=== PATIENT | male | born 2000 | race Two or more races ===

== ENCOUNTER 2024-08-07 16:27 | Emergency (ER) | payer MEDICAID, SELFPAY ==
[2024-08-07 16:28] VITALS: BMI 44.1
--- NOTE | 2024-08-07 17:29 | XR_ITS ---
Examination: CT abdomen and pelvis without contrast. Coronal 3-D reconstructions. Sagittal 2-D reconstructions. Date and time of exam:August 07, 2024 1736 hrs. Indications: Onset left-sided flank pain today CTDI: vol (mGy): 15.3 DLP: (mGycm): 1059 Technique: Axial images of the abdomen have been obtained, 3 mm slice thickness Intravenous contrast material has not been administered. Low dose protocols were performed. One or more of the following dose reduction techniques were used; automated exposure control, adjustment of the mA and/or KV according to patient size, use of iterative reconstruction technique. Findings: No focal liver or splenic lesions Contracted gallbladder No pancreatic or adrenal mass. No renal or ureteral calculi, no hydronephrosis Aorta normal size No bowel obstruction 8mm fat-containing umbilical hernia Normal appendix Mild inflammatory change about the descending colon, axial image 136 without definite diverticulitis No prostatomegaly Contracted urinary bladder Impression: No renal or ureteral calculi, no hydronephrosis Mild inflammatory change about the descending colon, axial image 136, consider nonspecific colitis, early epiploic appendagitis
--- NOTE | 2024-08-07 17:29 | PD.EDRME ---
Rapid Medical Screening Exam RME Arrival date/time: 08/07/24 16:27 Chief Complaint: Abdominal Pain Time Seen by Provider: 08/07/24 16:30 Vital signs: Vital Signs Temperature 98.1 F 08/07/24 17:31 Pulse Rate 95 08/07/24 17:31 Respiratory Rate 18 08/07/24 17:31 Blood Pressure 150/86 H 08/07/24 17:31 Pulse Oximetry (%) 97 08/07/24 17:31 Oxygen Delivery Method Room Air 08/07/24 17:31 RME Narrative: left sided abdominal pain x2 days
[2024-08-07 17:31] VITALS: BP 150/86; PULSE 95; RESP 18; TEMP 36.7; O2SAT 97
[2024-08-07 18:04] LABS: Collection Type, Urine Clean Catch; WBC,Urine 0 /hpf (0-5)
[2024-08-07 18:07] LABS: Basophils # (Auto) 0.1 Thou/mm3 (0.0-0.2); Basophils % (Auto) 1 % (0-2.5); Eosinophils # (Auto) 0.3 Thou/mm3 (0.0-0.5); Eosinophils % (Auto) 2 % (0-10); Hematocrit 46.2 % (41.0-53.0); Hemoglobin 15.9 g/dL (13.5-16.0); Immature Granulocytes % (Auto) 1 % (0-0); Immature Granulocytes Auto 0.06 Thou/mm3 (0.00-0.00); Lymphocytes # (Auto) 2.6 Thou/mm3 (1.0-4.8); Lymphocytes % (Auto) 21 % (10-50); Mean Corpuscular HGB Conc 34.4 g/dl (31.0-37.0); Mean Corpuscular Hemoglobin 29.6 pg (25.0-35.0); Mean Corpuscular Volume 86 fL (80-100); Monocytes # (Auto) 1.1 Thou/mm3 (0.0-0.8); Monocytes % (Auto) 9 % (0-12); Neutrophils # (Auto) 8.2 Thou/mm3 (1.8-7.7); Neutrophils % (Auto) 67 % (37-80); Nucleated Red Blood Cell % 0 /100 WBC (0); Platelet Count 268 Thou/mm3 (140-440); RDW Standard Deviation 39.3 fL (35.1-43.9); Red Blood Count 5.37 Miln/mm3 (4.50-5.90); White Blood Count 12.2 Thou/mm3 (3.8-10.6)
[2024-08-07 18:12] LABS: Bilirubin,Urine Negative (Negative); Blood,Urine Trace (Negative); Clarity,Urine Clear (Clear/Hazy); Color,Urine Yellow (Lt Yel-Yel); Glucose, Urine Negative (Negative); Ketones,Urine Trace (Negative); Leukocyte Esterase,Urine Negative (Negative); Nitrite,Urine Negative (Negative); Protein,Urine 1+ (Neg - Trace); RBC,Urine 11 /hpf (0-3); Specific Gravity,Urine 1.045 (1.001-1.035); Squamous Epithelial Cell,Urine 5 /hpf (0-5)
[2024-08-07 18:22] LABS: Alanine Aminotransferase 22 U/L (10-49); Albumin/Globulin Ratio 1.7 (1.2-2.2); Alkaline Phosphatase 94 U/L (46-116); Anion Gap 9 (7-16); Aspartate Amino Transferase 20 U/L (0-34); BUN/Creatinine Ratio 11 Ratio (12-20); Bilirubin,Total 0.5 mg/dL (0.3-1.2); Blood Urea Nitrogen 11 mg/dL (9-23); Calcium 9.6 mg/dL (8.3-10.6); Calcium (Corrected) 9.6 mg/dL (8.5-10.1); Carbon Dioxide 29.5 mMol/L (20.0-31.0); Chloride 103 mMol/L (98-107); Globulin 2.9 gm/dL (2.3-3.5); Glucose 92 mg/dL (74-106); Lipase 30 U/L (12-53); Osmolality,Calculated 280 (275-295); Potassium 3.7 mMol/L (3.4-5.1); Sodium 141 mMol/L (136-145); Total Protein 7.9 gm/dL (5.7-8.2); eGFR > 60 See Note
[2024-08-07 22:22] VITALS: BP 145/92; PULSE 80; RESP 18; TEMP 36.7; O2SAT 98
--- NOTE | 2024-08-07 22:44 | EDNOTE_ITS ---
<Statement entered by Nahomy Bell MD - 08/07/24 23:19> As co-signing physician, I was present and available for consult prn. I concur with the plan and care as documented by the midlevel provider. ED General RME/HPI General Chief complaint: Abdominal Pain Stated complaint: LEFT SIDE ABD PAIN FOR 2 DAYS Time Seen by Provider: 08/07/24 16:30 Arrival date/time: 08/07/24 16:27 CC: Left lower quadrant abdominal pain HPI at x 2 days no nausea or vomiting no prior history of similar events. Denies diarrhea chest pain shortness of breath or difficulty breathing. No OTC medicines taken. RME / HPI RME / HPI narrative: left sided abdominal pain x2 days Related Data Previous Rx's ?Medication ?Instructions ?Recorded acetaminophen 500 mg tablet 500 mg PO Q6HR PRN PAIN #30 tabs 06/08/17 (Tylenol Extra Strength) dicyclomine 20 mg tablet 20 mg PO BID #20 tabs 08/07/24 Allergies Allergy/AdvReac Type Severity Reaction Status Date / Time No Known Allergies Allergy Verified 08/07/24 16:29 Review of Systems Review of Systems Narrative Review of Systems: GEN: No fever, no chills, no weight loss EYES: No discharge, no visual changes, no pain HEENT: No ear pain, no congestion, no sore throat PULM: No shortness of breath, no cough, no congestion CV: No chest pain, no dyspnea on exertion, no palpitations GI: No nausea, no vomiting, no diarrhea, + pain, no constipation : No frequency, no urgency, no dysuria MUSC/SKEL: No joint pain, no back pain SKIN: No rash PSYCH: No hallucinations, no depression HEME/LYMPH: No easy bleeding or bruising tendencies NEURO: No weakness, no headache Past Medical History Social History SMOKING STATUS: Never smoker ED Exam Narrative Physical exam: [General: Obese not in any acute distress Head normocephalic HEENT: Within acceptable limits Neck is supple nontender Chest equal chest rise nontender to palpation Respiratory: Clear to auscultation no wheezes crackles or rubs CV: Rate rhythm is regular no murmurs rubs or clicks Abdomen is distended secondary to body habitus soft nontender no masses positive bowel sounds all 4 quadrants Back: No CVA tenderness no spinous process tenderness from cervical spine thoracic and lumbar spine Skin: Intact no petechiae rash induration ulceration or crepitus Extremities: Moving all extremity against resistance cap refill less than 2 seconds neurosensory intact Neuro: Awake alert oriented x3 Glascow coma 15 no focal deficits] Course Quality Measures none Orders Category Date Time Status CT abdomen pelvis wo con Stat Exams 08/07/24 17:29 Completed CBC Stat Lab 08/07/24 17:47 Completed CMP [Comprehensive Metabolic Panel] Stat Lab 08/07/24 17:47 Completed Lipase Stat Lab 08/07/24 17:47 Completed UA [Urinalysis] Stat Lab 08/07/24 17:35 Completed Vital Signs Vital signs: Vital Signs Temperature 98.1 F 08/07/24 17:31 Pulse Rate 95 08/07/24 17:31 Respiratory Rate 18 08/07/24 17:31 Blood Pressure 150/86 H 08/07/24 17:31 Pulse Oximetry (%) 97 08/07/24 17:31 Oxygen Delivery Method Room Air 08/07/24 17:31 [facility] Patient data External records reviewed:: [facility] previous records Clinical information provided by:: patient Social determinants that could affect healthcare access:: none Patient has the following chronic illnesses:: Obesity How is presenting disease/condition affected by chronic disease/condition?: u neffected by Evaluation data The following diagnostics were reviewed and interpreted by me:: lab results and radiology exam(s) Lab and/or radiology exams considered but not ordered:: CBC shows no leukocytosis anemia thrombocytopenia CMP shows no acute electrolyte imbalances renal impairment transaminitis or T. bili elevation Lipase is normal CT of the abdomen shows a mild diverticulitis of the descending colon. Interpretation Summary: Diverticulitis Medications Medications considered but not ordered:: None Medication administrations:: None Consultations Consultation(s) initiated? (list below): No Diagnosis Differential Diagnosis ED Complaint MDM: Diverticular colitis ileus diverticulosis Most likely diagnosis given after review of the tests above:: Diverticulitis Admission Indicated Admission indicated?: not indicated Explain why admission is indicated or not indicated:: Stable for outpatient follow-up Admission Request Was there a request for admission?: No Disposition Plan Disposition Plan: Discharge Discharge Attestation Discharge Attestation: The patient and all family members were given an opportunity to ask questions and understood the discharge instructions. Discharge instructions specifically effects, indications for sooner follow up or return to the emergency department, and the expected course of current diagnosis. Patient condition: Stable Medical Decision Making Differential Diagnosis Differential Diagnosis: Diverticular colitis ileus diverticulosis Lab Data 08/07/24 17:47 08/07/24 17:47 Labs: Lab Results 08/07/24 08/07/24 Range/Units 17:35 17:47 WBC 12.2 H (3.8-10.6) Thou/mm3 RBC 5.37 (4.50-5.90) Miln/mm3 Hgb 15.9 (13.5-16.0) g/dL Hct 46.2 (41.0-53.0) % MCV 86 (80-100) fL MCH 29.6 (25.0-35.0) pg MCHC 34.4 (31.0-37.0) g/dl RDW Std Deviation 39.3 (35.1-43.9) fL Plt Count 268 (140-440) Thou/mm3 Neut % (Auto) 67 (37-80) % Lymph % (Auto) 21 (10-50) % [place] % (Auto) 9 (0-12) % Eos % (Auto) 2 (0-10) % Baso % (Auto) 1 (0-2.5) % Neut # (Auto) 8.2 H (1.8-7.7) Thou/mm3 Lymph # (Auto) 2.6 (1.0-4.8) Thou/mm3 [place] # (Auto) 1.1 H (0.0-0.8) Thou/mm3 Eos # (Auto) 0.3 (0.0-0.5) Thou/mm3 Baso # (Auto) 0.1 (0.0-0.2) Thou/mm3 Immature Gran # (Auto) 0.06 H (0.00-0.00) Thou/mm3 Absolute Nucleated RBC 0.00 (0.00-0.00) Thou/mm3 Immature Gran % 1 H (0-0) % Nucleated RBC % 0 (0) /100 WBC Sodium 141 (136-145) mMol/L Potassium 3.7 (3.4-5.1) mMol/L Chloride 103 (98-107) mMol/L Carbon Dioxide 29.5 (20.0-31.0) mMol/L Anion Gap 9 (7-16) BUN 11 (9-23) mg/dL Creatinine 1.0 (0.6-1.3) mg/dL Estim Creat Clear Calc 162.0 (>60) mL/min eGFR > 60 (60 - ) See Note BUN/Creatinine Ratio 11 L (12-20) Ratio Glucose 92 (74-106) mg/dL Calculated Osmolality 280 (275-295) Calcium 9.6 (8.3-10.6) mg/dL Corrected Calcium 9.6 (8.5-10.1) mg/dL Total Bilirubin 0.5 (0.3-1.2) mg/dL AST 20 (0-34) U/L ALT 22 (10-49) U/L Alkaline Phosphatase 94 (46-116) U/L Total Protein 7.9 (5.7-8.2) gm/dL Albumin 5.0 (3.5-5.0) gm/dL Globulin 2.9 (2.3-3.5) gm/dL Albumin/Globulin Ratio 1.7 (1.2-2.2) Lipase 30 (12-53) U/L Ur Collection Type Clean Catch Urine Color Yellow (Lt Yel-Yel) Urine Clarity Clear (Clear/Hazy) Urine pH 6.0 (5.0-7.0) Ur Specific [place] 1.045 H (1.001-1.035) Urine Protein 1+ A (Neg - Trace) Urine Glucose (UA) Negative (Negative) Urine Ketones Trace (Negative) Urine Blood Trace (Negative) Urine Nitrite Negative (Negative) Urine Bilirubin Negative (Negative) Urine Urobilinogen (Auto) 2.0 (0.0-1.0) mg/dL Ur Leukocyte Esterase Negative (Negative) Urine RBC 11 H (0-3) /hpf Urine WBC 0 (0-5) /hpf Ur Squamous Epith Cells 5 (0-5) /hpf Urine Bacteria None (None) Discharge Plan Plan Patient Disposition: HOME (Self Care) Patient condition on transfer: Stable Prescriptions/Referrals Prescriptions/Med Rec: New dicyclomine 20 mg tablet 20 mg PO BID Qty: 20 0RF No Action acetaminophen [Tylenol Extra Strength] 500 MG tablet 500 mg PO Q6HR PRN (Reason: PAIN) Qty: 30 0RF Referrals: Floridalma Pretty FNP [Primary Care Provider] - In 1 week Problem List Clinical Impression: Diverticulitis Patient/Caregiver Discharge Instructions Education Materials: ED Diverticulitis, ED Diet, [place] (Adult) Print Language: Kuwaiti Stand Alone Forms: [employer] Award Info., Patient Portal Info Letter PA/MOVEMAN Supervising Physician PA/MOVEMAN Supervising Physician: Elmo Cruz ENP
[2024-08-07 23:03] VITALS: RESP 18
== END 2024-08-07 23:05 | disposition home or self-care (01) ==
PROVIDERS: Physician Assistant; Emergency Provider Emergency Medicine; PCP Nurse Practitioner Family
DX: K57.32 Diverticulitis of large intestine without perforation or abscess without bleeding (principal)
CPT/HCPCS: 36415; 74176; 80053; 81001; 83690; 85025; 99284

== ENCOUNTER 2025-02-26 15:51 | Emergency (ER) | payer MEDICAID, SELFPAY ==
[2025-02-26 16:19] VITALS: BP 130/78; PULSE 105; RESP 20; TEMP 38.4; O2SAT 95
--- NOTE | 2025-02-26 16:54 | XR_ITS ---
Examination: PA lateral chest 2 views TECHNIQUE: Upright PA and lateral chest 2 views Date and time: February 26, 2025, 1733 hours Comparison April 14, 2023 INDICATION: Shortness of breath chest pain beginning 3 days ago. FINDINGS: Poor inspiratory effort chest x-ray No significant cardiac enlargement Mild vascular congestion. No lobar pneumonia IMPRESSION: Poor inspiratory effort chest x-ray
[2025-02-26 17:00] VITALS: TEMP 38.4
[2025-02-26] MEDS: IBUPROFEN TAB 400 MG TABLET 800 MG PO (17:00)
[2025-02-26] MEDS: ACETAMINOPHEN 500 MG TABLET 1000 MG PO (17:00)
--- NOTE | 2025-02-26 17:14 | PD.EDRME ---
Rapid Medical Screening Exam [facility] Arrival date/time: 02/26/25 15:51 This is a 24-year-old male that comes in to the emergency room with complaint of fever. Patient was seen at the [facility] and was worked up for his fever. Patient states he had blood work and he had an EKG and according to patient it looked okay. Patient states that he continues to have a fever. Patient denies chest pain shortness of breath. I have greeted and performed a focused initial assessment of this patient. Initial appropriate labs ordered at this time. A comprehensive ED assessment and evaluation of the patient and analysis of all test and completion of medical decision making process will be conducted by additional ED provider. Chief Complaint: Dizziness Time Seen by Provider: 02/26/25 16:19 Vital signs: Vital Signs Temperature 101.1 F H 02/26/25 16:19 Pulse Rate 105 H 02/26/25 16:19 Respiratory Rate 20 02/26/25 16:19 Blood Pressure 130/78 02/26/25 16:19 Pulse Oximetry (%) 95 02/26/25 16:19 Oxygen Delivery Method Room Air 02/26/25 16:19
[2025-02-26 17:23] LABS: Strep A Rapid Negative (Negative)
[2025-02-26 18:10] VITALS: TEMP 37.1
--- NOTE | 2025-02-26 18:18 | EKG_ITS ---
[facility] Test Date: 2025-02-26 Pat Name: QUINCY MONTE Department: Room: - Gender: Male [employer] Consultant: : 2000 Requested By: Hubert Horn Order Number: [id number] Reading MD: Hubert Horn Measurements Intervals Hanna Rate: 94 P: 47 CT: 160 QRS: -8 QRSD: 113 T: 13 QT: 345 QTc: 431 Interpretive Statements SINUS RHYTHM MODERATE INTRAVENTRICULAR CONDUCTION DELAY [110+ ms QRS DURATION] No previous ECG available for comparison /store/S0/[id number].pdf
--- NOTE | 2025-02-26 18:22 | PD.EDDIZZY ---
ED Dizzyness RME/HPI General Chief Complaint: Dizziness Stated Complaint: LIGHT HEADED W/NAUSEA, FEVER YESTERDAY Time Seen by Provider: 02/26/25 16:19 Arrival date/time: 02/26/25 15:51 Limitations: no limitations RME / HPI RME / HPI Narrative: 24-year-old male who states for 1 week he has had intermittent shortness of breath, dizziness, and near syncopal episodes. He denies any chest pain. Has no abdominal pain, nausea, vomiting. Denies vertigo. Denies any nasal congestion or ear pain. Has no sore throat. Denies any chronic medical condition. He has no other acute complaints. Patient was initially seen, had a rapid medical examination performed. Doses of Tylenol and ibuprofen were provided. Shortly after he developed diffuse itching. A dose of Benadryl was provided. Related Data Previous Rx's ?Medication ?Instructions ?Recorded acetaminophen 500 mg tablet 500 mg PO Q6HR PRN PAIN #30 tabs 06/08/17 (Tylenol Extra Strength) dicyclomine 20 mg tablet 20 mg PO BID #20 tabs 08/07/24 Allergies Allergy/AdvReac Type Severity Reaction Status Date / Time acetaminophen AdvReac Mild Hives Verified 02/26/25 19:12 ED Exam General Limitations: Present no limitations General appearance: Present alert Head Head exam: Present atraumatic Eye Eye exam: Present normal appearance, PERRL and EOMI ENT ENT exam: Present normal exam, normal oropharynx and mucous membranes moist Neck Neck exam: Present normal inspection, full ROM and trachea midline Chest Chest inspection: Present normal inspection and symmetric chest wall rise Respiratory Respiratory exam: Present normal lung sounds bilaterally Cardiovascular Cardiovascular exam: Present regular rate, normal rhythm and normal heart sounds Abdominal Exam Abdominal exam: Present soft and normal bowel sounds Extremities Exam Extremities exam: Present normal inspection and full ROM Back Exam Back exam: Present normal inspection and full ROM Neurological Exam Neurological exam: Present alert and oriented X3 Psychiatric Psychiatric exam: Present normal affect and normal mood Skin Skin exam: Present warm, dry, intact and normal color Course Quality Measures none Orders Category Date Time Status Bedside COVID-19 Antigen Test NOW Care 02/26/25 16:54 Active Bedside Influenza A&B Antigen Test NOW Care 02/26/25 16:55 Completed EKG (ED ONLY) *Do not use* NOW Care 02/26/25 18:18 Completed EKG (ED Only) Stat Exams 02/26/25 18:18 Draft XR chest 2V Stat Exams 02/26/25 16:54 Completed BNP [B-Type Natriuretic Peptide] Stat Lab 02/26/25 19:04 Completed CBC Stat Lab 02/26/25 19:04 Completed CMP [Comprehensive Metabolic Panel] Stat Lab 02/26/25 19:04 Completed Path Review Blood Smear Stat Lab 02/26/25 19:04 Completed Strep A Rapid Stat Lab 02/26/25 17:03 Completed Troponin I Stat Lab 02/26/25 19:04 Completed Acetaminophen Tab [Tylenol ES Tab] Med 02/26/25 16:54 Discontinued 1,000 mg PO X1 ONE DiphenhydrAMINE INJ [Benadryl Inj] Med 02/26/25 18:13 Discontinued 50 mg IM X1 ONE Ibuprofen Tab [Motrin Tab] Med 02/26/25 16:54 Discontinued 800 mg PO X1 ONE Potassium Chloride [K-Dur] Med 02/26/25 20:15 Discontinued 40 meq PO X1 ONE Vital Signs Vital signs: Vital Signs Temperature 101.1 F H 02/26/25 16:19 Pulse Rate 105 H 02/26/25 16:19 Respiratory Rate 20 02/26/25 16:19 Blood Pressure 130/78 02/26/25 16:19 Pulse Oximetry (%) 95 02/26/25 16:19 Oxygen Delivery Method Room Air 02/26/25 16:19 Dizziness MDM Narrative MDM Narrative:: 24-year-old male who states for 1 week he has had intermittent shortness of breath, dizziness, and near syncopal episodes. He denies any chest pain. Has no abdominal pain, nausea, vomiting. Denies vertigo. Denies any nasal congestion or ear pain. Has no sore throat. Denies any chronic medical condition. He has no other acute complaints. Patient was initially seen, had a rapid medical examination performed. Doses of Tylenol and ibuprofen were provided. Shortly after he developed diffuse itching. A dose of Benadryl was provided. On exam, patient is nontoxic-appearing and in no visible signs of distress. His vital signs have remained stable throughout the ER course. He did have a fever initially at 101.1. This is now resolved. Patient has a mild the elevated white count at 13.2. Hemoglobin hematocrit are stable. CMP mild hypokalemia 3.1, his liver enzymes are mildly elevated, AST is 61 and ALT is 73. Alk phos is unremarkable. Bilirubin is unremarkable. BMP is unremarkable. Screening test for strep A, COVID, and influenza are negative. We discussed likely viral etiology. However I do think the patient would benefit from further workup as an outpatient. He states she has had some exertional dizziness. He may benefit from outpatient cardiology consult. Patient be discharged at this time. He is invited return as needed for any worsening or emergent changes Patient data External records reviewed:: None Clinical information provided by:: patient Social determinants that could affect healthcare access:: none Patient has the following chronic illnesses:: n/a How is presenting disease/condition affected by chronic disease/condition?: no chronic disease Evaluation data The following diagnostics were reviewed and interpreted by me:: EKG tracing(s) (EKG reveals normal sinus rhythm at [address] changes or dynamic T waves.) Lab and/or radiology exams considered but not ordered:: n/a Interpretation Summary: Mild leukocytosis, mild hypokalemia, mildly elevated liver enzymes Medications / Prescriptions Medications or Prescriptions considered but not ordered:: n/a Medication administrations:: Medication Administration History Discontinued Medications Acetaminophen (Acetaminophen 500 Mg Tablet) 1,000 mg PO X1 ONE Stop: 02/26/25 16:55 Last Admin: 02/26/25 17:00 Dose: 1,000 mg Documented By: TOMY Diphenhydramine HCl (Diphenhydramine Inj 50 Mg/Ml Vial) 50 mg IM X1 ONE Stop: 02/26/25 18:14 Last Admin: 02/26/25 18:19 Dose: 50 mg Documented By: TOMY Ibuprofen (Ibuprofen Tab 400 Mg Tablet) 800 mg PO X1 ONE Stop: 02/26/25 16:55 Last Admin: 02/26/25 17:00 Dose: 800 mg Documented By: TOMY Potassium Chloride (Potassium Chloride 20 Meq Tabcr) 40 meq PO X1 ONE Stop: 02/26/25 20:16 Last Admin: 02/26/25 20:26 Dose: 40 meq Documented By: MARCO ANTONIO n/a Consultations Consultation(s) initiated? (list below): No Diagnosis Most likely diagnosis given after review of the tests above:: n/a Admission Indicated Admission indicated?: not indicated Admission Request Was there a request for admission?: No Disposition Plan Disposition Plan: Discharge Discharge Attestation Discharge Attestation: The patient and all family members were given an opportunity to ask questions and understood the discharge instructions. Discharge instructions specifically effects, indications for sooner follow up or return to the emergency department, and the expected course of current diagnosis. Patient condition: Stable Discharge Plan Plan Patient Disposition: Home w/HOME HEALTH Patient condition on transfer: Stable Prescriptions/Referrals Prescriptions/Med Rec: No Action acetaminophen [Tylenol Extra Strength] 500 MG tablet 500 mg PO Q6HR PRN (Reason: PAIN) Qty: 30 0RF dicyclomine 20 mg tablet 20 mg PO BID Qty: 20 0RF Referrals: No Primary/Family,Physician [Primary Care Provider] - In 1 week Problem List Clinical Impression: Viral syndrome Patient/Caregiver Discharge Instructions Additional Instructions: -Maintain oral hydration. - Follow-up with your primary clinic this week to consider referral to cardiology further workup - Return as needed for any worsening or emergent changes. Print Language: Welsh Stand Alone Forms: Tri Award Info., Patient Portal Info Letter
[2025-02-26 19:28] LABS: Basophils # (Auto) 0.2 Thou/mm3 (0.0-0.2); Basophils % (Auto) 1 % (0-2.5); Eosinophils # (Auto) 0.2 Thou/mm3 (0.0-0.5); Eosinophils % (Auto) 1 % (0-10); Hematocrit 43.7 % (41.0-53.0); Hemoglobin 15.6 g/dL (13.5-16.0); Immature Granulocytes Auto 0.10 Thou/mm3 (0.00-0.00); Lymphocytes # (Auto) 7.8 Thou/mm3 (1.0-4.8); Lymphocytes % (Auto) 59 % (10-50); Mean Corpuscular HGB Conc 35.7 g/dl (31.0-37.0); Mean Corpuscular Hemoglobin 29.6 pg (25.0-35.0); Mean Corpuscular Volume 83 fL (80-100); Monocytes # (Auto) 0.6 Thou/mm3 (0.0-0.8); Monocytes % (Auto) 5 % (0-12); Neutrophils # (Auto) 4.3 Thou/mm3 (1.8-7.7); Neutrophils % (Auto) 33 % (37-80); Nucleated Red Blood Cell # 0.00 Thou/mm3 (0.00-0.00); Nucleated Red Blood Cell % 0 /100 WBC (0); Platelet Count 163 Thou/mm3 (140-440); RDW Standard Deviation 39.1 fL (35.1-43.9); Red Blood Count 5.27 Miln/mm3 (4.50-5.90); White Blood Count 13.2 Thou/mm3 (3.8-10.6)
[2025-02-26 19:30] LABS: Path Review Blood Smear Sent to Pathologist
[2025-02-26 19:48] LABS: Alanine Aminotransferase 73 U/L (10-49); Albumin, Serum 4.4 gm/dL (3.5-5.0); Albumin/Globulin Ratio 1.6 (1.2-2.2); Alkaline Phosphatase 102 U/L (46-116); Anion Gap 12 (7-16); Aspartate Amino Transferase 61 U/L (0-34); BUN/Creatinine Ratio 7 Ratio (12-20); Bilirubin,Total 0.8 mg/dL (0.3-1.2); Blood Urea Nitrogen 6 mg/dL (9-23); Calcium 8.7 mg/dL (8.3-10.6); Calcium (Corrected) 8.7 mg/dL (8.5-10.1); Carbon Dioxide 24.5 mMol/L (20.0-31.0); Chloride 105 mMol/L (98-107); Creatinine (Component) 0.9 mg/dL (0.6-1.3); Globulin 2.8 gm/dL (2.3-3.5); Glucose 118 mg/dL (74-106); Osmolality,Calculated 279 (275-295); Potassium 3.1 mMol/L (3.4-5.1); Sodium 141 mMol/L (136-145); Total Protein 7.2 gm/dL (5.7-8.2); Troponin I < 0.002 ng/mL (0.0-0.045); eGFR > 60 See Note
[2025-02-26 20:21] LABS: B-Type Natriuretic Peptide < 20 pg/mL (0-100)
== END 2025-02-26 22:22 | disposition home or self-care (01) ==
PROVIDERS: Nurse Practitioner Family; Physician Assistant Medical; Emergency Provider Emergency Medicine
DX: B34.9 Viral infection, unspecified (principal)
CPT/HCPCS: 36415; 71046; 80053; 83880; 84484; 85025; 87400; 87651; 87811; 93005; 96372; 99283; J1200; A9270